=== PATIENT | female | born 2000 | race Caucasian/White ===

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

== ENCOUNTER 2021-05-07 19:21 | Emergency (ER) | payer OTHER ==
[2021-05-07 20:07] VITALS: BP 126/84; PULSE 80; RESP 20; TEMP 97.3
[2021-05-07 20:34] LABS: Appearance,Urine Clear (Clear); Bacteria,Urine Rare /hpf; Bilirubin,Urine Negative (Negative); Blood,Urine Negative (Negative); Color,Urine Yellow; Glucose,Urine (UA) Negative (Negative); Ketones,Urine Negative (Negative); Leukocyte Esterase,Urine Trace (Negative); Mucus,Urine Few /hpf; Nitrite,Urine Negative (Negative); Protein,Urine Trace (Negative); RBC,Urine 1 /hpf (0-5); Specific Gravity,Urine 1.025 (1.001-1.035); Squamous Epithelial Cell,Urine 7 /hpf (0-4); WBC,Urine 1 /hpf (0-5)
[2021-05-07] MEDS ORDERED: SODIUM CHLORIDE 0.9% 500 ML 500 ML IV STA (21:03)
--- NOTE | 2021-05-07 21:12 | ED ---
General Adult HPI - General Chief complaint: Abdominal Pain Stated complaint: miscarriage, PCP sent Time Seen by Provider: 05/07/21 20:55 Source: patient, RN notes reviewed, old records reviewed Mode of arrival: ambulatory Limitations: no limitations - History of Present Illness Initial comments: 20-year-old female, alert and oriented 4 and well-appearing, presents to the emergency room with 2 weeks of abdominal cramping. Patient states she believes she had a miscarriage 2 weeks ago. Her last period was March 01. She did not take a test however she did pass what looked like tissue 2 weeks ago. She states she did call her primary care doctor who told her she should come to the emergency room at that time however she did not. She continues to have some cramping but denies any further vaginal bleeding or discharge. She denies any nausea vomiting diarrhea or fevers. She states she takes Tylenol 3 for bone pain caused from vitamin D deficiency, control pills and loratadine. -: week(s) (2) Location: pelvis Severity scale (1-10): 8 Quality: other (Cramping) Consistency: intermittent Improves with: none Worsens with: none Associated Symptoms: denies other symptoms - Related Data Allergies Allergy/AdvReac Type Severity Reaction Status Date / Time No Known Allergies Allergy Verified 05/07/21 20:01 Review of Systems ROS Statement: Those systems with pertinent positive or pertinent negative responses have been documented in the HPI. ROS Other: All systems not noted in ROS Statement are negative. Past Medical History Past Medical History: No Reported History History of Any Multi-Drug Resistant Organisms: None Reported Past Surgical History: No Surgical Hx Reported Past Psychological History: Anxiety, Bipolar, Depression, PTSD Smoking Status: Never smoker Past Alcohol Use History: None Reported Past Drug Use History: None Reported General Exam Limitations: no limitations General appearance: alert, in no apparent distress Head exam: Present: atraumatic, normocephalic, normal inspection Eye exam: Present: normal appearance, EOMI. Absent: scleral icterus, conjunctival injection, periorbital swelling, periorbital tenderness ENT exam: Present: normal exam, normal oropharynx, mucous membranes moist Neck exam: Present: normal inspection, full ROM. Absent: tenderness, meningismus, lymphadenopathy, thyromegaly Respiratory exam: Present: normal lung sounds bilaterally. Absent: respiratory distress, wheezes, rales, rhonchi, stridor, accessory muscle use Cardiovascular Exam: Present: regular rate, normal rhythm, normal heart sounds. Absent: systolic murmur, diastolic murmur, rubs, gallop, clicks, JVD GI/Abdominal exam: Present: soft, normal bowel sounds. Absent: distended, tenderness, guarding, rebound, rigid Extremities exam: Present: normal inspection, full ROM, normal capillary refill. Absent: tenderness, pedal edema, joint swelling, calf tenderness Neurological exam: Present: alert, oriented X3 Psychiatric exam: Present: normal affect, normal mood Skin exam: Present: warm, dry, intact, normal color. Absent: rash, cyanosis, diaphoretic Course Vital Signs 05/07/21 20:01 Temperature 97.3 F L Pulse Rate 80 Respiratory 20 Rate Blood Pressure 126/84 O2 Sat by Pulse 98 Oximetry Medical Decision Making - Medical Decision Making Well appearing 20-year-old female presents with 2 weeks of abdominal cramping. Patient states she believes she had a miscarriage 2 weeks ago. Ultrasound shows no evidence of ovarian torsion, normal uterus and endometrium. Uterus is within normal limits. There is no free fluid noted. No evidence of retained products or an IUP. Hemoglobin and hematocrit are stable. Beta-Quant is less than 2.4. Urine test is also negative. UA shows no evidence of blood, ketones or signs of infection. This pain may be related to abnormal menstrual cycle. She is currently taking control pills. She has no complaints of vaginal bleeding or discharge at this time. Patient will be discharged to follow up with her primary care doctor. Case discussed with Dr. Kirk - Lab Data Result diagrams: 05/07/21 21:22 05/07/21 21:22 Lab Results 05/07/21 05/07/21 05/07/21 Range/Units 20:19 20:19 21:22 WBC 10.9 (4.0-11.0) k/uL RBC 4.41 (3.80-5.40) m/uL Hgb 14.0 (11.4-16.0) gm/dL Hct 41.9 (34.0-46.0) % MCV 95.1 (80.0-100.0) fL MCH 31.8 (25.0-35.0) pg MCHC 33.4 (31.0-37.0) g/dL RDW 12.5 (11.5-15.5) % Plt Count 215 (150-450) k/uL MPV 8.7 Neutrophils % 70 % Lymphocytes % 23 % Monocytes % 4 % Eosinophils % 1 % Basophils % 0 % Neutrophils # 7.6 (1.3-7.7) k/uL Lymphocytes # 2.5 (1.0-4.8) k/uL Monocytes # 0.5 (0-1.0) k/uL Eosinophils # 0.1 (0-0.7) k/uL Basophils # 0.1 (0-0.2) k/uL Sodium (137-145) mmol/L Potassium (3.5-5.1) mmol/L Chloride (98-107) mmol/L Carbon Dioxide (22-30) mmol/L Anion Gap mmol/L BUN (7-17) mg/dL Creatinine (0.52-1.04) mg/dL Est GFR (CKD-EPI)AfAm (>60 ml/min/1.73 sqM) Est GFR (CKD-EPI)NonAf (>60 ml/min/1.73 sqM) Glucose (74-99) mg/dL Calcium (8.4-10.2) mg/dL HCG, Quant mIU/mL Urine Color Yellow Urine Appearance Clear (Clear) Urine pH 7.0 (5.0-8.0) Ur Specific [place] 1.025 (1.001-1.035) Urine Protein Trace H (Negative) Urine Glucose (UA) Negative (Negative) Urine Ketones Negative (Negative) Urine Blood Negative (Negative) Urine Nitrite Negative (Negative) Urine Bilirubin Negative (Negative) Urine Urobilinogen 3.0 (<2.0) mg/dL Ur Leukocyte Esterase Trace H (Negative) Urine RBC 1 (0-5) /hpf Urine WBC 1 (0-5) /hpf Ur Squamous Epith Cells 7 H (0-4) /hpf Urine Bacteria Rare H (None) /hpf Urine Mucus Few H (None) /hpf Urine HCG, Qual Not Detected (Not Detectd) 05/07/21 Range/Units 21:22 WBC (4.0-11.0) k/uL RBC (3.80-5.40) m/uL Hgb (11.4-16.0) gm/dL Hct (34.0-46.0) % MCV (80.0-100.0) fL MCH (25.0-35.0) pg MCHC (31.0-37.0) g/dL RDW (11.5-15.5) % Plt Count (150-450) k/uL MPV Neutrophils % % Lymphocytes % % Monocytes % % Eosinophils % % Basophils % % Neutrophils # (1.3-7.7) k/uL Lymphocytes # (1.0-4.8) k/uL Monocytes # (0-1.0) k/uL Eosinophils # (0-0.7) k/uL Basophils # (0-0.2) k/uL Sodium 137 (137-145) mmol/L Potassium 4.0 (3.5-5.1) mmol/L Chloride 106 (98-107) mmol/L Carbon Dioxide 20 L (22-30) mmol/L Anion Gap 11 mmol/L BUN 13 (7-17) mg/dL Creatinine 0.71 (0.52-1.04) mg/dL Est GFR (CKD-EPI)AfAm >90 (>60 ml/min/1.73 sqM) Est GFR (CKD-EPI)NonAf >90 (>60 ml/min/1.73 sqM) Glucose 97 (74-99) mg/dL Calcium 9.4 (8.4-10.2) mg/dL HCG, Quant <2.4 mIU/mL Urine Color Urine Appearance (Clear) Urine pH (5.0-8.0) Ur Specific [place] (1.001-1.035) Urine Protein (Negative) Urine Glucose (UA) (Negative) Urine Ketones (Negative) Urine Blood (Negative) Urine Nitrite (Negative) Urine Bilirubin (Negative) Urine Urobilinogen (<2.0) mg/dL Ur Leukocyte Esterase (Negative) Urine RBC (0-5) /hpf Urine WBC (0-5) /hpf Ur Squamous Epith Cells (0-4) /hpf Urine Bacteria (None) /hpf Urine Mucus (None) /hpf Urine HCG, Qual (Not Detectd) Disposition Clinical Impression: Pelvic pain Disposition: HOME SELF-CARE Condition: Good Instructions (If sedation given, give patient instructions): Pelvic Pain in Women (ED) Additional Instructions: You can take Tylenol and or Motrin as needed for pain. Use a heat pack during episodes of cramping. Return to the emergency room with any new or worsening symptoms including increased pain, vaginal bleeding or fevers. Follow-up with the primary care doctor next week. Is patient prescribed a controlled substance at d/c from ED?: No Referrals: Alice Kwon MD [Primary Care Provider] - 1-2 days Time of Disposition: 22:26
[2021-05-07 21:28] LABS: Basophils # (A) 0.1 k/uL (0-0.2); Basophils % (A) 0 %; Eosinophils # (A) 0.1 k/uL (0-0.7); Eosinophils % (A) 1 %; HCT 41.9 % (34.0-46.0); Lymphocytes # (A) 2.5 k/uL (1.0-4.8); Lymphocytes % (A) 23 %; MCH 31.8 pg (25.0-35.0); MCHC 33.4 g/dL (31.0-37.0); MCV 95.1 fL (80.0-100.0); Mean Platelet Volume 8.7; Monocytes # (A) 0.5 k/uL (0-1.0); Monocytes % (A) 4 %; Neutrophils # (A) 7.6 k/uL (1.3-7.7); Neutrophils % (A) 70 %; Platelet Count 215 k/uL (150-450); RBC 4.41 m/uL (3.80-5.40); RDW 12.5 % (11.5-15.5); WBC 10.9 k/uL (4.0-11.0)
[2021-05-07 21:51] LABS: African American GFR (CKD) >90 (>60 ml/min/1.73 sqM); Anion Gap 11 mmol/L; Blood Urea Nitrogen 13 mg/dL (7-17); Calcium 9.4 mg/dL (8.4-10.2); Carbon Dioxide 20 mmol/L (22-30); Chloride 106 mmol/L (98-107); Glucose 97 mg/dL (74-99); Non-African American GFR(CKD) >90 (>60 ml/min/1.73 sqM); Sodium 137 mmol/L (137-145)
[2021-05-07 22:08] LABS: HCG,Quantitative Serum <2.4 mIU/mL
--- NOTE | 2021-05-07 22:13 | US ---
EXAMINATION TYPE: US transvaginal DATE OF EXAM: 05/07/2021 COMPARISON: CLINICAL HISTORY: pelvic pain. Miscarriage 2 weeks ago. Pelvic pain. TECHNIQUE: Transvaginal (TV). Date of LMP: Unknown, [id number] EXAM MEASUREMENTS: Uterus: 6.4 x 3.2 x 2.6 cm Endometrial Stripe: 0.1 cm Right Ovary: 2.0 x 1.9 x 1.6 cm Left Ovary: 2.0 x 1.2 x 1.3 cm 1. Uterus: Anteverted wnl 2. Endometrium: wnl 3. Right Ovary: wnl 4. Left Ovary: wnl Spectral, color and waveform doppler imaging shows good arterial and venous flow within the ovaries ; there is no evidence for ovarian torsion. 5. Bilateral Adnexa: no free fluid 6. Posterior cul-de-sac: Peristalsing fluid filled loops of bowel visualized, no free fluid IMPRESSION: No evidence of ovarian torsion. Normal uterus and endometrium.
== END 2021-05-07 22:41 | disposition home or self-care (01) ==
LOC: EC 19:21
DX: R10.2 Pelvic and perineal pain (principal)
CPT/HCPCS: 36415; 76830; 80048; 81001; 81025; 84702; 85025; 86900; 86901; 93975; 99284

== ENCOUNTER → 2022-02-17 | Outpatient (CLI) | payer OTHER ==
--- NOTE | 2022-02-18 07:14 | US ---
EXAMINATION TYPE: US transvaginal DATE OF EXAM: 02/17/2022 COMPARISON: NONE CLINICAL HISTORY: R10.2 Female pelvic pain. Pelvic pain. Irregular menses TECHNIQUE: Transvaginal (TV). Date of LMP: September 2021 EXAM MEASUREMENTS: Uterus: 6.3 x 2.8 x 3.6 cm Endometrial Stripe: 0.3 cm Right Ovary: 2.8 x 1.9 x 1.8 cm Left Ovary: obscured by overlying bowel content 1. Uterus: Anteverted slightly heterogeneous 2. Endometrium: wnl 3. Right Ovary: follicles noted 4. Left Ovary: Obscured by overlying bowel gas 5. Bilateral Adnexa: wnl 6. Posterior cul-de-sac: wnl IMPRESSION: 1. No evidence for acute process. 2. Nonvisualization of the left ovary.
== END | disposition home or self-care (01) ==
LOC: RADUSWWP 15:52
PROVIDERS: ATTEND Internal Medicine
DX: R10.2 Pelvic and perineal pain (principal)
CPT/HCPCS: 76830

== ENCOUNTER → 2022-11-10 | Outpatient (CLI) | payer OTHER ==
[2022-11-10 15:36] LABS: HCT 43.3 % (37.2-46.3); MCH 30.4 pg (27.0-32.0); MCHC 32.3 d/dL (32.0-37.0); MCV 93.9 FL (80.0-97.0); Mean Platelet Volume 10.8 FL (9.5-12.2); NRBC Per 100 WBC 0 X 10*3/uL (0.00-0.01); Platelet Count 271 X 10*3/uL (140-440); RBC 4.61 X 10*6/uL (4.10-5.20); RDW 11.9 % (11.5-14.5); WBC 8.34 X 10*3/uL (4.50-10.00)
[2022-11-10 15:37] LABS: Basophils # (A) 0.06 X 10*3/uL (0.00-0.10); Basophils % (A) 0.7 %; Eosinophils # (A) 0.27 X 10*3/uL (0.04-0.35); Eosinophils % (A) 3.2 %; Lymphocytes # (A) 2.12 X 10*3/uL (0.90-5.00); Lymphocytes % (A) 25.4 %; Monocytes # (A) 0.43 X 10*3/uL (0.20-1.00); Monocytes % (A) 5.2 %; Neutrophils # (A) 5.45 X 10*3/uL (1.80-7.70); Neutrophils % (A) 65.4 %
[2022-11-10 15:57] LABS: Rheumatoid Factor, Qnt <15 IU/mL (0-15); Uric Acid 3.7 mg/dL (2.9-7.7)
[2022-11-10 16:14] LABS: Erythrocyte Sedimentation Rate 3 mm/Hr (0-20)
[2022-11-11 10:06] LABS: HLA B27 NEGATIVE
== END | disposition home or self-care (01) ==
LOC: LABWHC1 11:30
PROVIDERS: ATTEND Orthopaedic Surgery
DX: M25.50 Pain in unspecified joint (principal)
CPT/HCPCS: 36415; 84550; 85025; 85652; 86038; 86140; 86431; 86812

== ENCOUNTER 2024-07-30 16:04 | Observation (INO) | payer OTHER ==
--- NOTE | 2024-07-30 17:56 | ED ---
Seizure HPI - General Chief Complaint: Seizure Stated Complaint: Seizure Time Seen by Provider: 07/30/24 17:18 Source: patient, RN notes reviewed, old records reviewed Mode of arrival: ambulatory Limitations: no limitations - History of Present Illness Initial Comments: This is a 24-year-old female to the ER for evaluation of seizure activity no history of seizures but has had multiple seizure-like episodes over the past week. After these events she usually has a lot of numbness tingling and weakness. Patient has no recent change in medications does admit to marijuana use but no other complaints MD Complaint: seizure, possible seizure -: days(s) Description of Episode: loss of consciousness -: second(s) Witnessed: yes - by bystander Seizure History: none Place: home Possible Precipitating Event: none Associated Symptoms: denies other symptoms - Related Data Home Medications Medication Instructions Recorded Confirmed Multivitamins, Thera [Multivitamin 1 tab PO DAILY 07/30/24 07/30/24 (formulary)] Omeprazole 20 mg PO DAILY 07/30/24 07/30/24 Vitamin D3(Unknown Dose) 1 tab PO DAILY 07/30/24 07/30/24 Allergies Allergy/AdvReac Type Severity Reaction Status Date / Time No Known Allergies Allergy Verified 07/30/24 19:48 Review of Systems ROS Statement: Those systems with pertinent positive or pertinent negative responses have been documented in the HPI. ROS Other: All systems not noted in ROS Statement are negative. Past Medical History Past Medical History: No Reported History History of Any Multi-Drug Resistant Organisms: None Reported Past Surgical History: No Surgical Hx Reported Past Psychological History: Anxiety, Bipolar, Depression, PTSD Smoking Status: Never smoker Past Alcohol Use History: None Reported Past Drug Use History: None Reported General Exam Limitations: no limitations General appearance: alert, in no apparent distress Head exam: Present: atraumatic, normocephalic, normal inspection Eye exam: Present: normal appearance, PERRL, EOMI. Absent: scleral icterus, conjunctival injection, periorbital swelling ENT exam: Present: normal exam, mucous membranes moist Neck exam: Present: normal inspection. Absent: tenderness, meningismus, lymphadenopathy Respiratory exam: Present: normal lung sounds bilaterally. Absent: respiratory distress, wheezes, rales, rhonchi, stridor Cardiovascular Exam: Present: regular rate, normal rhythm, normal heart sounds. Absent: systolic murmur, diastolic murmur, rubs, gallop, clicks GI/Abdominal exam: Present: soft, normal bowel sounds. Absent: distended, tenderness, guarding, rebound, rigid Extremities exam: Present: normal inspection, full ROM, normal capillary refill. Absent: tenderness, pedal edema, joint swelling, calf tenderness Back exam: Present: normal inspection Neurological exam: Present: alert, oriented X3, CN II-XII intact Psychiatric exam: Present: normal affect, normal mood Skin exam: Present: warm, dry, intact, normal color. Absent: rash Course Vital Signs 07/30/24 07/30/24 16:28 18:18 Temperature 98 F Pulse Rate 132 H 83 Respiratory 20 20 Rate Blood Pressure 140/82 129/83 O2 Sat by Pulse 99 100 Oximetry - Reevaluation(s) Reevaluation #1: 07/30/24 19:19 Records reviewed Reevaluation #2: 07/30/24 20:01 no Seizure activity here in the ER Reevaluation #3: 07/30/24 20:01 Patient informed of results and questions answered Reevaluation #4: Was pt. sent in by a medical professional or institution (, PA, COMMUTATOR V RING ASSEMBLER, urgent care, hospital, or prison...) When possible be specific @ -no Did you speak to anyone other than the patient for history (EMS, parent, family, police, friend...)? What history was obtained from this source @ -no Did you review nursing and triage notes (agree or disagree)? Why? @ -agree Are old charts reviewed (outside hosp., previous admission, EMS record, old EKG, old radiological studies, urgent care reports/EKG's, prison records)? Report findings @ -yes Differential Diagnosis (chest pain, altered mental status, abdominal pain women, abdominal pain men, vaginal bleeding, weakness, fever, dyspnea, syncope, headache, dizziness, GI bleed, back pain, seizure, CVA, palpatations, mental health, musculoskeletal)? @ -prior EKG interpreted by me (3pts min.). @ -yes X-rays interpreted by me (1pt min.). @ -yes negative for acute disease CT interpreted by me (1pt min.). @ -no U/S interpreted by me (1pt. min.). @ -no What testing was considered but not performed or refused? (CT, X-rays, U/S, labs)? Why? @ -none What meds were considered but not given or refused? Why? @ -none Did you discuss the management of the patient with other professionals (professionals i.e. , PA, COMMUTATOR V RING ASSEMBLER, lab, RT, psych nurse, social work manager, director of field service, teacher, air defense artillery officer, case packer)? Give summary @ -no Was smoking cessation discussed for >3mins.? @ -no Was critical care preformed (if so, how long)? @ -no Were there social determinants of health that impacted care today? How? (Homele ssness, low income, unemployed, alcoholism, drug addiction, transportation, low edu. Level, literacy, decrease access to med. care, assisted, rehab)? @ -none Was there de-escalation of care discussed even if they declined (Discuss DNR or withdrawal of care, Hospice)? DNR status @ -no What co-morbidities impacted this encounter? (DM, HTN, Smoking, COPD, CAD, Cancer, CVA, ARF, Chemo, Hep., AIDS, mental health diagnosis, sleep apnea, morbid obesity)? @ -none Was patient admitted / discharged? Hospital course, mention meds given and route, prescriptions, significant lab abnormalities, going to OR and other pertinent info. @ - Undiagnosed new problem with uncertain prognosis? @ -no Drug Therapy requiring intensive monitoring for toxicity (Heparin, Nitro, Insulin, Cardizem)? @ -no Were any procedures done? @ -no Diagnosis/symptom? @ - Acute, or Chronic, or Acute on Chronic? @ -Acute Uncomplicated (without systemic symptoms) or Complicated (systemic symptoms)? @ -Complicated Side effects of treatment? @ -no Exacerbation, Progression, or Severe Exacerbation? @ -exacerbation Poses a threat to life or bodily function? How? (Chest pain, [place], NE, pneumonia, PE, COPD, DKA, ARF, appy, cholecystitis, CVA, Diverticulitis, Homicidal, Suicidal, threat to staff... and all critical care pts) @ -yes Reevaluation #5: Differential Seizure: Recurrent seizure disorder, febrile seizure, alcohol withdrawal, stimulants, meningitis, encephalitis, intercranial hemorrhage, intracranial tumor, stroke, eclampsia, thyrotoxicosis, hypocalcemia, hyponatremia, hypernatremia, hypomagnesemia, psychogenic, this is not meant to be an all-inclusive list. - Consultations Consultation #1: Spoke with Dr Kwon who agrees to admit this patient Medical Decision Making - Medical Decision Making 24 female to the ER for evaluation will admit for possibility of new onset seizure for neuro evaluation with significant electrolyte abnormalities will replace - Lab Data Result diagrams: 07/30/24 17:58 07/30/24 17:58 Lab Results 07/30/24 07/30/24 07/30/24 Range/Units 17:58 17:58 17:58 WBC 9.8 (3.8-10.6) k/uL RBC 4.87 (3.80-5.40) m/uL Hgb 15.7 (11.4-16.0) gm/dL Hct 45.9 (34.0-46.0) % MCV 94.3 (80.0-100.0) fL MCH 32.2 (25.0-35.0) pg MCHC 34.2 (31.0-37.0) g/dL RDW 11.9 (11.5-15.5) % Plt Count 293 (150-450) k/uL MPV 8.1 Neutrophils % 70 % Lymphocytes % 22 % Monocytes % 5 % Eosinophils % 1 % Basophils % 0 % Neutrophils # 6.9 (1.3-7.7) k/uL Lymphocytes # 2.1 (1.0-4.8) k/uL Monocytes # 0.5 (0-1.0) k/uL Eosinophils # 0.1 (0-0.7) k/uL Basophils # 0.0 (0-0.2) k/uL Sodium 135 L (137-145) mmol/L Potassium 3.6 (3.5-5.1) mmol/L Chloride 100 (98-107) mmol/L Carbon Dioxide 21 L (22-30) mmol/L Anion Gap 14 mmol/L BUN 9 (7-17) mg/dL Creatinine 0.60 (0.52-1.04) mg/dL Est GFR (CKD-EPI)AfAm >90 (>60 ml/min/1.73 sqM) Est GFR (CKD-EPI)NonAf >90 (>60 ml/min/1.73 sqM) Glucose 111 H (74-99) mg/dL Plasma Lactic Acid Tad 2.6 H* (0.7-2.0) mmol/L Calcium 9.9 (8.4-10.2) mg/dL Phosphorus 3.2 (2.5-4.5) mg/dL Magnesium 1.4 L (1.6-2.3) mg/dL Total Bilirubin 1.5 H (0.2-1.3) mg/dL AST 26 (14-36) U/L ALT 11 (4-34) U/L Alkaline Phosphatase 58 (38-126) U/L Total Protein 7.7 (6.3-8.2) g/dL Albumin 4.8 (3.5-5.0) g/dL Urine Color Urine Appearance (Clear) Urine pH (5.0-8.0) Ur Specific [place] (1.001-1.035) Urine Protein (Negative) Urine Glucose (UA) (Negative) Urine Ketones (Negative) Urine Blood (Negative) Urine Nitrite (Negative) Urine Bilirubin (Negative) Urine Urobilinogen (<2.0) mg/dL Ur Leukocyte Esterase (Negative) Urine RBC (0-5) /hpf Urine WBC (0-5) /hpf Urine WBC Clumps (None) /hpf Ur Squamous Epith Cells (0-4) /hpf Urine Bacteria (None) /hpf Urine Mucus (None) /hpf Salicylates <1.0 mg/dL Urine Opiates Screen (NotDetected) Ur Oxycodone Screen (NotDetected) Urine Methadone Screen (NotDetected) Acetaminophen <10.0 ug/mL Ur Barbiturates Screen (NotDetected) U Tricyclic Antidepress (NotDetected) Ur Phencyclidine Scrn (NotDetected) Ur Amphetamines Screen (NotDetected) U Methamphetamines Scrn (NotDetected) U Benzodiazepines Scrn (NotDetected) Urine Cocaine Screen (NotDetected) U Marijuana (THC) Screen (NotDetected) 07/30/24 Range/Units 18:01 WBC (3.8-10.6) k/uL RBC (3.80-5.40) m/uL Hgb (11.4-16.0) gm/dL Hct (34.0-46.0) % MCV (80.0-100.0) fL MCH (25.0-35.0) pg MCHC (31.0-37.0) g/dL RDW (11.5-15.5) % Plt Count (150-450) k/uL MPV Neutrophils % % Lymphocytes % % Monocytes % % Eosinophils % % Basophils % % Neutrophils # (1.3-7.7) k/uL Lymphocytes # (1.0-4.8) k/uL Monocytes # (0-1.0) k/uL Eosinophils # (0-0.7) k/uL Basophils # (0-0.2) k/uL Sodium (137-145) mmol/L Potassium (3.5-5.1) mmol/L Chloride (98-107) mmol/L Carbon Dioxide (22-30) mmol/L Anion Gap mmol/L BUN (7-17) mg/dL Creatinine (0.52-1.04) mg/dL Est GFR (CKD-EPI)AfAm (>60 ml/min/1.73 sqM) Est GFR (CKD-EPI)NonAf (>60 ml/min/1.73 sqM) Glucose (74-99) mg/dL Plasma Lactic Acid Tad (0.7-2.0) mmol/L Calcium (8.4-10.2) mg/dL Phosphorus (2.5-4.5) mg/dL Magnesium (1.6-2.3) mg/dL Total Bilirubin (0.2-1.3) mg/dL AST (14-36) U/L ALT (4-34) U/L Alkaline Phosphatase (38-126) U/L Total Protein (6.3-8.2) g/dL Albumin (3.5-5.0) g/dL Urine Color Light Red Urine Appearance Cloudy H (Clear) Urine pH 6.0 (5.0-8.0) Ur Specific [place] 1.014 (1.001-1.035) Urine Protein 1+ H (Negative) Urine Glucose (UA) Negative (Negative) Urine Ketones 2+ H (Negative) Urine Blood Large H (Negative) Urine Nitrite Negative (Negative) Urine Bilirubin Negative (Negative) Urine Urobilinogen <2.0 (<2.0) mg/dL Ur Leukocyte Esterase Moderate H (Negative) Urine RBC 31 H (0-5) /hpf Urine WBC 33 H (0-5) /hpf Urine WBC Clumps Many H (None) /hpf Ur Squamous Epith Cells 11 H (0-4) /hpf Urine Bacteria Occasional H (None) /hpf Urine Mucus Few H (None) /hpf Salicylates mg/dL Urine Opiates Screen Not Detected (NotDetected) Ur Oxycodone Screen Not Detected (NotDetected) Urine Methadone Screen Not Detected (NotDetected) Acetaminophen ug/mL Ur Barbiturates Screen Not Detected (NotDetected) U Tricyclic Antidepress Not Detected (NotDetected) Ur Phencyclidine Scrn Not Detected (NotDetected) Ur Amphetamines Screen Not Detected (NotDetected) U Methamphetamines Scrn Not Detected (NotDetected) U Benzodiazepines Scrn Detected H (NotDetected) Urine Cocaine Screen Not Detected (NotDetected) U Marijuana (THC) Screen Detected H (NotDetected) - EKG Data -: EKG Interpreted by Me (EKG is sinus 77 PA 132 QRS 87 QTc 405) - Radiology Data Radiology results: report reviewed (CT brain is negative for acute disease), image reviewed Disposition Clinical Impression: New onset seizure, Hypomagnesemia, Lactic acidosis Disposition: ADMITTED IP TO THIS [facility] Condition: Fair Is patient prescribed a controlled substance at d/c from ED?: No
[2024-07-30] MEDS: SODIUM CHLORIDE 0.9% 1,000 ML IV STA (18:03)
[2024-07-30] MEDS: SODIUM CHLORIDE 0.9% 1,000 ML IV ONE (18:04)
[2024-07-30] MEDS: LORazepam 2 MG/ML INJ IV STA (18:05)
[2024-07-30 18:18] LABS: Basophils % (A) 0 %; Eosinophils # (A) 0.1 k/uL (0-0.7); Eosinophils % (A) 1 %; HCT 45.9 % (34.0-46.0); HGB 15.7 gm/dL (11.4-16.0); Lymphocytes # (A) 2.1 k/uL (1.0-4.8); Lymphocytes % (A) 22 %; MCH 32.2 pg (25.0-35.0); MCHC 34.2 g/dL (31.0-37.0); MCV 94.3 fL (80.0-100.0); Mean Platelet Volume 8.1; Monocytes # (A) 0.5 k/uL (0-1.0); Monocytes % (A) 5 %; Neutrophils # (A) 6.9 k/uL (1.3-7.7); Neutrophils % (A) 70 %; Platelet Count 293 k/uL (150-450); RBC 4.87 m/uL (3.80-5.40); RDW 11.9 % (11.5-15.5); WBC 9.8 k/uL (3.8-10.6)
[2024-07-30 18:28] LABS: ALT 11 U/L (4-34); AST 26 U/L (14-36); Acetaminophen <10.0 ug/mL; African American GFR (CKD) >90 (>60 ml/min/1.73 sqM); Albumin 4.8 g/dL (3.5-5.0); Alkaline Phosphatase 58 U/L (38-126); Anion Gap 14 mmol/L; Blood Urea Nitrogen 9 mg/dL (7-17); Calcium 9.9 mg/dL (8.4-10.2); Carbon Dioxide 21 mmol/L (22-30); Chloride 100 mmol/L (98-107); Glucose 111 mg/dL (74-99); Magnesium 1.4 mg/dL (1.6-2.3); Non-African American GFR(CKD) >90 (>60 ml/min/1.73 sqM); Phosphorus 3.2 mg/dL (2.5-4.5); Potassium 3.6 mmol/L (3.5-5.1); Salicylate <1.0 mg/dL; Sodium 135 mmol/L (137-145); Total Bilirubin 1.5 mg/dL (0.2-1.3); Total Protein 7.7 g/dL (6.3-8.2)
[2024-07-30 18:31] LABS: Appearance,Urine Cloudy (Clear); Bacteria,Urine Occasional /hpf; Bilirubin,Urine Negative (Negative); Blood,Urine Large (Negative); Color,Urine Light Red; Glucose,Urine (UA) Negative (Negative); Ketones,Urine 2+ (Negative); Leukocyte Esterase,Urine Moderate (Negative); Mucus,Urine Few /hpf; Nitrite,Urine Negative (Negative); Protein,Urine 1+ (Negative); RBC,Urine 31 /hpf (0-5); Specific Gravity,Urine 1.014 (1.001-1.035); Squamous Epithelial Cell,Urine 11 /hpf (0-4); Urobilinogen,Urine <2.0 mg/dL (<2.0); WBC,Urine 33 /hpf (0-5)
[2024-07-30 18:34] LABS: Amphetamine Screen,Urine Not Detected (NotDetected); Barbiturate Screen,Urine Not Detected (NotDetected); Benzodiazepines Screen,Urine Detected (NotDetected); Cocaine Screen,Urine Not Detected (NotDetected); Methadone Screen, Urine Not Detected (NotDetected); Opiate Screen,Urine Not Detected (NotDetected); Oxycodone Screen, Urine Not Detected (NotDetected); Phencyclidine Screen,Urine Not Detected (NotDetected); Tricyclic Antidepressant,Urine Not Detected (NotDetected); Urn Cannabinoid Scrn Detected (NotDetected)
--- NOTE | 2024-07-30 18:57 | CT ---
EXAMINATION TYPE: CT brain wo con DATE OF EXAM: 07/30/2024 6:40 PM COMPARISON: 09/18/2015. CLINICAL INDICATION: Female, 24 years old with history of seizure activity, Seizure activity TECHNIQUE: Brain: Axial CT images of the brain were obtained with coronal and sagittal reformats created and rev iewed. Contrast used: None. Oral contrast used: None. CT DLP: 1086.4 mGycm, Automated exposure control for dose reduction was used. FINDINGS: Brain: Extra-axial spaces: No abnormal extra-axial fluid collections. Ventricular system: Within normal limits Cerebral parenchyma: No acute intraparenchymal hemorrhage or mass effect. The monteiro-white junction is well differentiated. Cerebellum: Unremarkable. Mass effect: No evidence of midline shift. Intracranial vasculature: unremarkable Soft tissues: Normal. Calvarium/osseous structures: No depressed skull fracture. Paranasal sinuses and mastoid air cells: Moderate scattered paranasal sinus disease. Visualized orbits: Orbital contents are intact. IMPRESSION: 1. No acute intracranial process. 2. Moderate paranasal sinus disease. [facility], , 07/30/2024 6:55 PM
[2024-07-30] MEDS ORDERED: NALOXONE 0.4 MG/ML 1 ML VIAL IV PRN (19:17)
[2024-07-30] MEDS ORDERED: ONDANSETRON 4 MG/2 ML VIAL IVP PRN (19:17)
[2024-07-30] MEDS: MAGNESIUM OXIDE 400 MG TAB PO STA ×2 (19:50)
[2024-07-30] MEDS: MAGNESIUM SULFATE-D5W PMX 1 GM in DEXTROSE/WATER 1 100ML.BAG IVPB ONE (22:40)
[2024-07-31] MEDS: ACETAMINOPHEN TAB 325 MG TAB PO PRN (00:20)
[2024-07-31] MEDS: LORazepam 2 MG/ML INJ IV PRN (03:37)
[2024-07-31 09:37] LABS: Basophils # (A) 0.1 k/uL (0-0.2); Basophils % (A) 1 %; Eosinophils # (A) 0.2 k/uL (0-0.7); Eosinophils % (A) 3 %; HCT 38.4 % (34.0-46.0); Lymphocytes % (A) 35 %; MCH 31.3 pg (25.0-35.0); MCHC 32.8 g/dL (31.0-37.0); MCV 95.6 fL (80.0-100.0); Mean Platelet Volume 8.6; Monocytes # (A) 0.4 k/uL (0-1.0); Monocytes % (A) 6 %; Neutrophils % (A) 53 %; Platelet Count 236 k/uL (150-450); RBC 4.02 m/uL (3.80-5.40); RDW 12.3 % (11.5-15.5); WBC 5.7 k/uL (3.8-10.6)
[2024-07-31 09:43] LABS: ALT 7 U/L (4-34); AST 16 U/L (14-36); African American GFR (CKD) >90 (>60 ml/min/1.73 sqM); Albumin 3.4 g/dL (3.5-5.0); Alkaline Phosphatase 39 U/L (38-126); Anion Gap 8 mmol/L; Blood Urea Nitrogen 4 mg/dL (7-17); Calcium 8.4 mg/dL (8.4-10.2); Carbon Dioxide 24 mmol/L (22-30); Chloride 106 mmol/L (98-107); Glucose 88 mg/dL (74-99); HGB 12.6 gm/dL (11.4-16.0); Magnesium 1.8 mg/dL (1.6-2.3); Non-African American GFR(CKD) >90 (>60 ml/min/1.73 sqM); Phosphorus 3.6 mg/dL (2.5-4.5); Potassium 3.6 mmol/L (3.5-5.1); Sodium 138 mmol/L (137-145); Total Bilirubin 0.8 mg/dL (0.2-1.3); Total Protein 5.7 g/dL (6.3-8.2)
--- NOTE | 2024-07-31 13:34 | P.CN ---
Psychiatric Consult - . Consult date: 07/31/24 Consult:: 07/31/24 12:50 IDENTIFYING DATA: This patient is a 24-year-old female, currently single has no kids lives with her parents in a house REASON FOR REFERRAL: "severe anxiety" Manager Mass spoke with patient's nurse, then attempted to see patient at the bedside. Patient was claiming that her anxiety is "fine" and denied any issues at this time. States that she is in the hospital for seizure. Claims that she follows up with the nurse practitioner at [facility] for or anxiety and did not want to speak to teletypewriter installer at this time. She appeared to be frustrated that teletypewriter installer was consulted despite her knowledge. She states that she has a follow-up with her nurse practitioner in 1 week and will follow-up with her, she ended the interview. she is denying any SI or HI and denies any AH or VH. Psychiatry will sign off as patient claims that she does not want to be seen at this time. She will follow-up with [facility]. Spoke with patient's nurse about the plan. 07/31/24 13:31
[2024-07-31 15:52] VITALS: BP 138/90; PULSE 115; RESP 17; TEMP 98.8
--- NOTE | 2024-07-31 17:07 | P.HPIM ---
History of Present Illness H&P Date: 07/31/24 Rosetta Sena, is a 24-year-old female who presented to the office complaining of severe anxiety and asking for prescription for Xanax. Patient also stated that she was having seizures, she was told to go to emergency room to be evaluated for seizures. Patient was evaluated in the emergency room vital examination on presentation revealed a temperature of 98 pulse 132 respiration 20 blood pressure 140/82 pulse ox 99% on room air Laboratory data revealed a white blood count of 9.8 hemoglobin 15.7 platelet count 293 sodium 135 potassium 3.6 chloride 100 CO2 21 BUN 9 creatinine 0.60 urine analysis revealed evidence of urinary tract infection with moderate leukocyte esterase and 33 white blood cells urine toxicology screen was positive for benzodiazepine and marijuana. CT scan of the brain was done in the emergency room and revealed No acute intracranial abnormality She was admitted to the observation unit neurology consultation and psychiatry consultation were requested Past Medical History Past Medical History: GERD/Reflux History of Any Multi-Drug Resistant Organisms: None Reported Past Surgical History: No Surgical Hx Reported Past Anesthesia/Blood Transfusion Reactions: No Reported Reaction Past Psychological History: Anxiety, Depression, PTSD Additional Psychological History / Comment(s): OCD Smoking Status: Never smoker Past Alcohol Use History: None Reported Past Drug Use History: None Reported Medications and Allergies Home Medications Medication Instructions Recorded Confirmed Type Multivitamins, Thera [Multivitamin 1 tab PO DAILY 07/30/24 07/30/24 History (formulary)] Omeprazole 20 mg PO DAILY 07/30/24 07/30/24 History Vitamin D3(Unknown Dose) 1 tab PO DAILY 07/30/24 07/30/24 History Allergies Allergy/AdvReac Type Severity Reaction Status Date / Time No Known Allergies Allergy Verified 07/30/24 19:48 Physical Exam Vitals: Vital Signs Temp Pulse Pulse Resp BP BP Pulse Ox 07/31/24 01:37 98.3 F 79 17 120/70 100 07/30/24 21:00 99.2 F 96 18 113/80 100 07/30/24 20:57 98.1 F 96 18 125/81 99 07/30/24 18:18 83 20 129/83 100 07/30/24 16:28 98 F 132 H 20 140/82 99 Intake and Output 07/30/24 07/31/24 07/31/24 22:59 06:59 14:59 Other: # Voids 2 Weight 56.699 kg In general patient is alert and oriented x 3 in no distress HEENT head normocephalic and atraumatic Neck is supple no JVD no goiter no lymphadenopathy no carotid bruit Chest examination is clear to auscultation no crackles no wheezing Cardiac exam reveals regular heart sounds S1 and S2 no gallops no murmurs Abdomen is soft nontender no organomegaly with normal bowel sounds Extremity exam reveals no edema no cyanosis or clubbing Neurological examination reveals no gross focal deficits Results CBC & Chem 7: 07/31/24 08:14 07/31/24 08:14 Labs: Abnormal Lab Results - Last 24 Hours (Table) 07/30/24 07/30/24 07/30/24 Range/Units 17:58 17:58 18:01 Sodium 135 L (137-145) mmol/L Carbon Dioxide 21 L (22-30) mmol/L Glucose 111 H (74-99) mg/dL Plasma Lactic Acid Tad 2.6 H* (0.7-2.0) mmol/L Magnesium 1.4 L (1.6-2.3) mg/dL Total Bilirubin 1.5 H (0.2-1.3) mg/dL Urine Appearance Cloudy H (Clear) Urine Protein 1+ H (Negative) Urine Ketones 2+ H (Negative) Urine Blood Large H (Negative) Ur Leukocyte Esterase Moderate H (Negative) Urine RBC 31 H (0-5) /hpf Urine WBC 33 H (0-5) /hpf Urine WBC Clumps Many H (None) /hpf Ur Squamous Epith Cells 11 H (0-4) /hpf Urine Bacteria Occasional H (None) /hpf Urine Mucus Few H (None) /hpf U Benzodiazepines Scrn Detected H (NotDetected) U Marijuana (THC) Screen Detected H (NotDetected) Thrombosis Risk Factor Assmnt - Choose All That Apply Any of the Below Risk Factors Present?: No Other Risk Factors: No Other congenital or acquired thrombophilia - If yes, enter type in comment: No Thrombosis Risk Factor Assessment Level: Very Low Risk Assessment and Plan Plan: Uncontrollable movements of the upper extremities, patient and her mother are i nterpreting them as seizures, patient denies any loss of consciousness, denies biting her tongue, denies any urine or stool incontinence Neurology consultation was requested Anxiety disorder, patient is followed at [facility], she was asking for Xanax prescription which was not given to her. Psychiatry consultation was requested Underlying history of schizoaffective disorder Underlying history of major depression Underlying history of thyroid nodule At this time patient was seen and examined Home medications reviewed and reordered Will avoid benzodiazepine if possible Psychiatry consultation and neurology consultation was requested EEG ordered Will follow closely
--- NOTE | 2024-08-01 00:28 | EEG ---
ELECTROENCEPHALOGRAM REPORT PREAMBLE: This is a 24-year-old female with new seizure-type activity. EEG FINDINGS: This is a 21-channel digital EEG recorded with video component, utilizing 10/20 international system with referential and bipolar montages. Background consists of well-developed, moderately well regulated, predominantly low amplitude fast frequency beta activity seen in bihemispheric region. Background seems to be slightly reactive to eye opening and closing. Photic driving response was seen with some flash frequencies. Drowsiness was seen with appearance of bilaterally symmetric theta frequency rhythm. Deeper stages of sleep were not seen. No focal or generalized epileptiform activity was seen. IMPRESSION: This is a mildly abnormal EEG due to the presence of excessive amount of low-voltage fast frequency beta activity, suggestive of benzodiazepine effect. No focal, lateralized, or epileptiform activity was seen. MMODL / IJN: [id number] /
--- NOTE | 2024-08-01 13:09 | P.CNNES ---
History of Present Illness Consult date: 07/31/24 Requesting physician: Yuriy Young Reason for Consult: newSz? History of Present Illness: Patient is a 24-year-old female came to the hospital yesterday at 4:04 PM for seizure-like activity. Patient states that since this winter, she has been fighting sinus infection. Patient states that about 2 weeks ago, she started having pain in the right inner thigh region, pointing to the adductor muscles of the upper thigh. About a week later, she started having numbness of both hands, left more than right. She could not feel with her hands. Last 07/24/2024 she was watching TV when she started having chest pain. She felt dizzy and felt needed to lay down. She noticed tingling and sharp pain in the left lateral forearm region. Patient states that she put a pillow on the ground and went down to the ground. Her boyfriend saw her jerking head backwards, eyes rolled back in the head and she could not respond although she could hear. He put her in recovery position. Once she came to, she did not seek medical attention, and she blamed it some spell related to not sleeping well. On and Monday, this episode happened again. She took half tablet of Xanax (she found it in her old medication cabinet), and she took it thinking that she was having panic attack. It helped pull her out of 1 of those spell. She went to her primary physician office yesterday, on Monday and as she was talking, she started to pass out. The primary physician told her to go to the ER. Patikannan nt states that she has been told that she has UTI then she was told she does not have UTI. Patient states that she does try to stay focused, but her eyes go back and she goes back. Patient denies any tongue bite with any of the spells. Vital signs on arrival blood pressure 140/82, which came down to 129/83, pulse rate 132 and temperature 98.0. Patient has been afebrile. Blood test showed normal CBC, sodium 135 potassium is 3.6. Lactate was elevated 2.6. Hepatic panel is normal. UA was abnormal because patient is on her periods. Urine hCG negative. Urine drug screen positive for benzodiazepine, marijuana. Lactate was elevated 2.6. CT head showed no acute intracranial process. Moderate paranasal sinus disease. I personally reviewed CT head, agree with the findings. There is pansinus disease. EKG showed sinus rhythm with marked sinus arrhythmia. Patient smokes marijuana off and on. Denies any drug use or tobacco. Drinks alcohol socially. Patient also mentions that she is either having sinus infection or stomach infection. She has been just 120 pounds, not gaining weight that she likes to. Review of Systems All pertinent positive and negative review of systems mentioned in the HPI, otherwise unremarkable. Past Medical History Past Medical History: GERD/Reflux History of Any Multi-Drug Resistant Organisms: None Reported Past Surgical History: No Surgical Hx Reported Past Anesthesia/Blood Transfusion Reactions: No Reported Reaction Past Psychological History: Anxiety, Depression, PTSD Additional Psychological History / Comment(s): OCD Smoking Status: Never smoker Past Alcohol Use History: None Reported Past Drug Use History: None Reported Medications and Allergies Home Medications Medication Instructions Recorded Confirmed Type Multivitamins, Thera [Multivitamin 1 tab PO DAILY 07/30/24 07/30/24 History (formulary)] Omeprazole 20 mg PO DAILY 07/30/24 07/30/24 History Vitamin D3(Unknown Dose) 1 tab PO DAILY 07/30/24 07/30/24 History Escitalopram [Lexapro] 5 mg PO DAILY 30 Days #30 tablet 07/31/24 Rx Allergies Allergy/AdvReac Type Severity Reaction Status Date / Time No Known Allergies Allergy Verified 07/30/24 19:48 Physical Examination - Vital Signs Vital Signs: Vital Signs Temp Pulse Resp BP Pulse Ox 07/31/24 15:00 98.8 F 115 H 17 138/90 100 Patient is a young female, very pleasant, in no acute distress. Patient appears somewhat anxious. Patient is alert awake oriented to time place and person. Speech and language functions are normal. Patient can name and repeat very well. No aphasia or dysarthria. Attention, concentration and fund of knowledge is adequate. On cranial nerve examination, pupils are equal, round and reacting to light, visual monroy are full on confrontation, with no neglect on double simultaneous stimulation. Extraocular muscles are intact with no nystagmus. Face is symmetric, tongue protrudes to the midline. Palatal elevation and sensation normal, hearing and shoulder shrug normal, facial sensation normal. No evidence of tongue bite ani. On muscle strength testing, there is no pronator drift and the strength is normal in arms and legs distally and proximally. Deep tendon reflexes are symmetric 1+ at the biceps, 1+ brachioradialis, 2+ at the knees, 2 ankles and plantars downgoing bilaterally. Sensory to touch is equal with no neglect on double simultaneous stimulation. Cerebellar function showed no ataxia for [id number] testing, although she was slightly shaky bilaterally. No dysdiadochokinesia. No ataxia for [id number] testing on either side. Tone and bulk of muscles normal. Gait deferred.. On general examination, there is no carotid bruit or murmur, S1-S2 audible. Chest is clear on consultation. Abdomen is soft nontender. No organomegaly, bowel sounds present. Peripheral pulses are present. No peripheral edema. Results - Laboratory Findings CBC and BMP: 07/31/24 08:14 07/31/24 08:14 Abnormal Lab Findings: Abnormal Labs 07/30/24 07/30/24 07/30/24 17:58 17:58 18:01 Sodium 135 L Carbon Dioxide 21 L BUN Glucose 111 H Plasma Lactic Acid Tad 2.6 H* Magnesium 1.4 L Total Bilirubin 1.5 H Total Protein Albumin Urine Appearance Cloudy H Urine Protein 1+ H Urine Ketones 2+ H Urine Blood Large H Ur Leukocyte Esterase Moderate H Urine RBC 31 H Urine WBC 33 H Urine WBC Clumps Many H Ur Squamous Epith Cells 11 H Urine Bacteria Occasional H Urine Mucus Few H U Benzodiazepines Scrn Detected H U Marijuana (THC) Screen Detected H 07/31/24 08:14 Sodium Carbon Dioxide BUN 4 L Glucose Plasma Lactic Acid Tad Magnesium Total Bilirubin Total Protein 5.7 L Albumin 3.4 L Urine Appearance Urine Protein Urine Ketones Urine Blood Ur Leukocyte Esterase Urine RBC Urine WBC Urine WBC Clumps Ur Squamous Epith Cells Urine Bacteria Urine Mucus U Benzodiazepines Scrn U Marijuana (THC) Screen Assessment and Plan Assessment: * Seizure type spells, probably nonepileptic. * Anxiety disorder/panic attack * Marijuana use Plan: * Patient probably has nonepileptic spells. * EEG was performed, which was mildly abnormal due to presence of excessive amount of low voltage fast frequency beta activity, suggestive of benzodiazepine effect. No focal, lateralized or epileptiform activity was seen. * Patient has anxiety disorder, currently not being treated. Psychiatry has seen the patient for "severe anxiety", but patient declined to speak to the p sychiatrist. * Recommend trial of SSRI like Lexapro to help with anxiety/panic attack. * Patient's numbness of hands is of unclear cause. Her Vitamin B12 340, folate 16.10. TSH 1.60. Vitamin B12 is somewhat borderline, may help with B12 replacement. * Patient has seen Dr. Rodríguez in the past. Patient was recommended to follow- up with Dr. Rodríguez for further management of these spells and other n eurological symptoms. She may need an MRI of the brain, which can be performed as an outpatient by her neurologist. Patient expressed understanding that she will follow-up with her neurologist Dr. Rodríguez in 1 to 2 weeks. * Neurologically clear for discharge. Patient recommended to hold off on dri ving until cleared by her neurologist outpatient. * Discussed with primary physician regarding above plan. Thank you for the consult.
== END 2024-07-31 17:41 ==
LOC: EC 16:04 → 6NMEDSUR 19:17 → 1SOBS 19:49
PROVIDERS: ADMIT Internal Medicine; ATTEND Internal Medicine
DX: R56.9 Unspecified convulsions (principal); F31.9 Bipolar disorder, unspecified; E87.20 Acidosis, unspecified; E83.42 Hypomagnesemia; K21.9 Gastro-esophageal reflux disease without esophagitis; F41.0 Panic disorder [episodic paroxysmal anxiety]; F12.90 Cannabis use, unspecified, uncomplicated; F25.9 Schizoaffective disorder, unspecified; E04.1 Nontoxic single thyroid nodule; Z79.899 Other long term (current) drug therapy
CPT/HCPCS: 96366; 96367; 96376; 96365; 96375; 99285; 36415; 95816; 93005; 80053 ×2; 84443; 82607; 82746; 83605; 83735 ×2; 84100 ×2; 85025 ×2; 81001; 81025; 80306; 80143; 80179; 70450; G0378 ×2; J2060 ×2; J0696 ×2; J3475